=== PATIENT | male | born 1955 | race Caucasian/White ===

== ENCOUNTER 2020-12-02 20:18 | Emergency (ER) | payer MEDICAID ==
[~2020-12-02] VITALS: Ht 185.4 cm; Wt 70.8 kg
[2020-12-02 20:37] LABS: ABSOLUTE LYMPHOCYTES 1.3 thou/uL (0.8-5.3); ABSOLUTE MONOCYTES 1.1 thou/uL (0.0-1.2); ABSOLUTE NEUTROPHILS 4.1 thou/uL (1.6-8.1); BASOPHILS 0.7 %; EOSINOPHILS 0.6 %; HEMATOCRIT 42.3 % (42.0-52.0); HEMOGLOBIN 14.7 gm/dL (14.0-18.0); LYMPHOCYTES 19.3 %; MCH 35.9 pg (26.0-34.0); MCHC 34.8 g/dL (28.0-37.0); MCV 103.2 fL (80.0-100.0); MONOCYTES 17.4 %; MPV 7.5 fl. (7.2-11.1); NUCLEATED RBCS 0 /100WBC; PLATELET COUNT* 251 thou/uL (150-400); RBC 4.09 mil/uL (4.50-6.00); RDW-CV 14.9 % (10.5-14.5); WBC 6.6 thou/uL (4.0-11.0)
[2020-12-02 20:50] LABS: CALCIUM 8.7 mg/dL (8.5-10.1); CREATININE 0.8 mg/dL (0.6-1.3)
[2020-12-02 20:55] LABS: ALBUMIN 3.8 g/dL (3.4-5.0); TOTAL BILIRUBIN 1.1 mg/dL (<0.1-1.0); TOTAL PROTEIN 7.2 g/dL (6.4-8.2)
[2020-12-02 23:30] VITALS: BP 126/87
--- NOTE | 2020-12-03 10:25 | EKG ---
[place] [address] ELECTROCARDIOGRAM REPORT Name: NOY MARTIN Room: [facility]#: [id number] Admission: 12/02/20 Attend Phys: Discharge: 12/02/20 Date of : 55 Date of Service: 12/02/202037 Report #: [id number] THIS REPORT FOR: //name// [facility] ED Test Date: 2020-12-02 Test Time: 20:38:42 Pat Name: NOY MARTIN Department: Room: Gender: [employer]: : 1955 Requested By: Emy Sherwood Order Number: [id number] MD: Fabien Mcconnell Measurements Intervals [place] Rate: 92 P: 48 AR: 147 QRS: -13 QRSD: 92 T: 15 QT: 355 QTc: 440 Interpretive Statements Sinus rhythm Low voltage, precordial leads No previous ECG available for comparison Electronically Signed On 12-03-2020 10:25:45 CDT by Fabien Mcconnell [email or web address] <ELECTRONICALLY SIGNED> By: Fabien Mcconnell MD, [facility] 10/12/145 37 37 Fabien Mcconnell MD, [facility] /EPI
== END 2020-12-02 23:30 | disposition home or self-care (01) ==
LOC: M.ERS 20:18
PROVIDERS: Emergency Medicine
DX: G62.1 Alcoholic polyneuropathy (principal)